=== PATIENT | female | born 1985 | race Caucasian/White ===

== ENCOUNTER 2018-03-23 20:26 | Emergency (ER) | payer SELFPAY ==
[2018-03-23 20:26] VITALS: BMI 31.8
--- NOTE | 2018-03-23 20:43 | C.PDOC ---
History Of Present Illness 32 year old female presents to the emergency department with complaints of lower abdominal pain with dysuria and frequency radiating to her back persisting for the last two days. Patient reports that today she noticed blood in her urine, and stated that her last menstrual period was on 03-09-18. Patient denies fever, vomiting, diarrhea, or constipation. Time Seen by Provider: 03/23/18 20:36 Chief Complaint (Nursing): Back Pain History Per: Patient History/Exam Limitations: no limitations Onset/Duration Of Symptoms: Days (2) Current Symptoms Are (Timing): Still Present Quality Of Discomfort: "Pain" Associated Symptoms: Urinary Symptoms. denies: Fever, Vomiting, Diarrhea, Constipation Last Menstral Period: 03-09-18 Past Medical History Reviewed: Historical Data, Nursing Documentation, Vital Signs Vital Signs: Last Vital Signs Temp 97.7 F 03/23/18 21:41 Pulse 61 03/23/18 21:41 Resp 18 03/23/18 21:41 BP 111/76 03/23/18 21:41 Pulse Ox 98 03/23/18 22:00 - Medical History PMH: Anemia Surgical History: [facility]end[facility] - [facility] EXTRACTION OF POC, LOW CERVICAL, OPEN APPROACH (01/31/16) Family History: States: No Known Family Hx - Social History Hx Tobacco Use: No Hx Alcohol Use: No Hx Substance Use: No - Immunization History Hx Tetanus Toxoid Vaccination: No Hx Influenza Vaccination: No Hx Pneumococcal Vaccination: No Review Of Systems Constitutional: Negative for: Fever Gastrointestinal: Positive for: Abdominal Pain. Negative for: Vomiting, Diarrhea, Constipation Genitourinary: Positive for: Dysuria, Frequency, Hematuria Physical Exam - Physical Exam Appears: Non-toxic, No Acute Distress Skin: Warm, Dry, No Rash Head: Atraumatic, Normacephalic Eye(s): bilateral: Normal Inspection Nose: Normal Neck: Supple Chest: Symmetrical Cardiovascular: Rhythm Regular, No Murmur Respiratory: Normal Breath Sounds, No Rales, No Rhonchi, No Wheezing Gastrointestinal/Abdominal: Soft, Tenderness (mild, suprapubic), No Distention, No Guarding Back: Normal Inspection, No CVA Tenderness, No Vertebral Tenderness, No Paraspinal Tenderness Extremity: Bilateral: Atraumatic, Normal Color And Temperature Neurological/Psych: Oriented x3, Normal Speech Gait: Steady ED Course And Treatment O2 Sat by Pulse Oximetry: 98 (RA) Pulse Ox Interpretation: Normal Medical Decision Making Medical Decision Making: Impression: dysuria Plan: * UA * Hcg * Culture Progress: Urine shows pyuria, leukocytes and dirty Will treat with Bactrim DS. Patient remained afebrile and in no distress. Abdomen remains soft and non- tender. Patient instructed to drink fluids and take antibiotic. Follow up with primary doctor in few days. Disposition Counseled Patient/Family Regarding: Diagnosis, Need For Followup, Rx Given - [facility]position [facility] Disposition: HOME/ ROUTINE Disposition Time: 21:58 Condition: GOOD Additional Instructions: Take antibiotic twice daily and be sure to finish taking all of antibiotic. Drink plenty of fluids. Follow up with your primary medical doctor or clinic in 2-5 days for further evaluation. [place] antibiticos dos veces al da y asegrese de terminar de judy todos los antibiticos. Beber mucho lquido. Arleth un seguimiento con salcedo mdico primario o clnica en 2-5 ortega para stacie evaluacin adicional. 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 - Scribe Statement The provider has reviewed the documentation as recorded by the Scribe All medical record entries made by the Scribe were at my direction and personally dictated by me. I have reviewed the chart and agree that the record accurately reflects my personal performance of the history, physical exam, medical decision making, and the department course for this patient. I have also personally directed, reviewed, and agree with the discharge instructions and disposition.
[2018-03-23 21:38] LABS: HCG,QUALITATIVE URINE NEGATIVE (NEGATIVE)
[2018-03-23 21:42] VITALS: BP 111/76; PULSE 61; RESP 18; TEMP 97.7
[2018-03-23 21:43] LABS: SQUAMOUS EPITHIAL 10 /hpf (0-5); URINE BACTERIA OCC (<OCC); URINE BILIRUBIN NEGATIVE (NEGATIVE); URINE BLOOD 2+ (NEGATIVE); URINE CLARITY Turbid (Clear); URINE COLOR Amber (YELLOW); URINE GLUCOSE (UA) 3+ mg/dL (Normal); URINE LEUKOCYTE ESTERASE 2+ Leu/uL (Negative); URINE PROTEIN 2+ mg/dL (NEGATIVE); WBC CLUMPS MOD /hpf
[2018-03-23] MEDS ORDERED: Tmp-Smz 800 mg-160 mg DS Tab PO STA (21:49)
[2018-03-23] MEDS ORDERED: Tmp-Smz 800 mg-160 mg DS Tab ONE (21:55)
[2018-03-23 22:00] VITALS: O2SAT 98
== END 2018-03-23 22:03 | disposition home or self-care (01) ==
LOC: C.ER 20:26
DX: N39.0 Urinary tract infection, site not specified (principal)